=== PATIENT | female | born 1970 | race Caucasian/White ===

== ENCOUNTER 2023-12-27 15:44 | Outpatient (AMB) | payer BC, SELFPAY ==
[2023-12-27 15:59] VITALS: BP 134/86; PULSE 79; TEMP 37.3; O2SAT 98
--- NOTE | 2023-12-27 15:59 | MHC.OFFWIV ---
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 Patient Tobacco Use Status: Never used Tobacco Allergies No Known Allergies Allergy (Verified 12/27/23 16:00) Do you need a note to return to daycare/school/sports/work: No HPI HPI Comments History of Present Illness Details Patient presents to the walk-in today for sick visit Complaining of white past to back of her tongue and pain to the tongue Noticed this approximately 1 week ago [facility] Social History Patient Tobacco Use Status: Never used Tobacco Review of Systems Const All systems reviewed & are unremarkable except as noted in HPI and below Physical Exam Vital Signs: Last Vital Signs Temp 99.2 F 12/27/23 15:59 Pulse 79 12/27/23 15:59 BP 134/86 12/27/23 15:59 Pulse Ox 98 12/27/23 15:59 Oxygen Delivery Method Room Air 12/27/23 15:59 General: awake, alert, oriented. Answers questions appropriately. Fully engaged in examination. Skin: warm, dry, intact HEENT: Normocephalic. Hearing intact. Mouth: Normal exam aside from small white area at the back of her tongue. Cardiac: External chest normal in appearance. Respiratory: No cough, audible wheezing or stridor. Abdomen: without gross distension. MS: No obvious swelling or deformities. Neurological: Oriented to person, place, time and situation. Thought process intact. No gait abnormalities appreciated. Psychiatric: Appropriate mood and affect. Good judgment and insight. Assessment & Plan Assessment & Plan (1) Oral angie: Code(s): B37.0 - Candidal stomatitis Plan clotrimazole 10 mg mucous membrane TID Follow up with PCP, dentist or return here for any new or worsening symptoms Medications: New clotrimazole 10 mg mucous membrane TID 42 tabs 0RF Coding Level of Care Code New Pt Level 3 (99337) Diagnoses Oral angie B37.0
== END 2023-12-27 16:42 | disposition home or self-care (01) ==
PROVIDERS: PCP Family Medicine; Visit Provider Registered Nurse Emergency
DX: B37.0 Candidal stomatitis (principal)
CPT/HCPCS: 99203

== ENCOUNTER 2024-08-24 14:08 | Outpatient (AMB) | payer BC, SELFPAY ==
--- NOTE | 2024-08-24 14:11 | MHC.OFFVIS ---
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 Back pain has been longstanding issue for this patient for over 15 years. She completed numerous courses of formal physical therapy, chiropractic manipulation and adjustment and TENS unit. She [place] [facility] [facility] and received injections with mixed results. She completed physical therapy last year with no improvement in her pain or functioning. Back pain is axial and also radiates to bilateral buttocks and left lateral and posterior lower leg but not below the knee level. She also has been experiencing occasional falls and losing balance with associated numbness and tingling to the left foot. Patient also reports daily chronic migraines that have been worsening. She denies any significant neck pain since bilateral breast reduction in [id number]. 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 Pain affects her daily activities and functioning, and, mood sleep, social interactions and quality of life. Denies any fever or chills or groin pain, footdrop, bladder or bowel dysfunction or saddle anesthesia. Location: Lower back pain radiates down left leg Duration: Chronic pain for over 15 years Characteristics of symptom or complaint: Ramon, shooting, stabbing, tugging, tingling, sore, tiring, radiating Aggravating or associated factors: Movements, changing positions, bending, walking, stress Relieving factors: NSAIDs, Tylenol, topical OTC, heat/cold therapy Treatment: PT, injections, chiropractic therapy, TENS unit [facility] Medical History (Updated 08/24/24 @ 16:19 by JOSEFINA Lopez) Allergic rhinitis Anxiety ADD (attention deficit disorder) Bilateral cataracts Allergic contact dermatitis due to plant Crohn's disease GERD (gastroesophageal reflux disease) Heartburn Sacroiliac joint dysfunction of left side Vitamin D deficiency Asthma Loss of balance Oral angie Migraine headache Lumbar degenerative disc disease Chronic fatigue Surgical History (Updated 08/24/24 @ 16:19 by JOSEFINA Lopez) H/O arthroscopy of shoulder History of tonsillectomy History of cataract surgery H/O colonoscopy History of partial hysterectomy Social History (Updated 08/24/24 @ 14:21 by Angelica Ingram) Alcohol intake: current Alcohol type: wine Patient Tobacco Use Status: Never used Tobacco Review of Systems Const All systems reviewed & are unremarkable except as noted in HPI and below Physical Exam Vital Signs: Last Vital Signs Pulse 75 08/24/24 14:12 BP 169/128 H 08/24/24 14:12 Pulse Ox 99 08/24/24 14:12 Oxygen Delivery Method Room Air 08/24/24 14:12 BMI result Body Mass Index 25.7 General: Appears afebrile. Alert and oriented. Mood and affect appropriate. Follows and participates in conversation appropriately. Respiratory effort is unlabored. No cough. Able to transition from sit to stand unassisted. Ambulates with bilaterally normal heel strike and toe off. HEENT Head: Yes normal to inspection, Yes No palpable skull fracture present, Yes normocephalic, Yes atraumatic, No occipital foramen tenderness and No Temporal artery tenderness present Neck Neck: Yes full ROM, Yes no lymphadenopathy, Yes supple, No anterior neck swelling, Yes no JVD, No prominent supraclavicular fat pad and No prominent dorsocervical fat pad General: Yes no CVA tenderness Back/Spine/Pelvis Other: Patient is able to walk and stand on heels and tip toes with no difficulties demonstrating good motor tone. No limping. Can flex forward to 80-85 degrees and extend to 10-15 degrees before experiencing lumbar pain, worse pain with returning to neutral position after flexing forward or bending. Demonstrates 5/5 strength of quadriceps bilaterally as well as flexion/dorsiflexion of bilateral feet against resistance. 2+ pedal pulses bilaterally. Straight leg rise with dorsiflexion negative bilaterally. +2 patellar and achilles reflexes bilaterally. Facet loading test positive bilaterally. Viri sign is positive bilaterally, Gianluca?s, Gaenslen, Pelvic compression and Stinchfield tests are positive on the left. No groin pain with I/E hip rotations. Valsalva maneuver negative. Back: no CVA tenderness Cervical Spine: cervical ROM normal, cervical muscular tenderness, No Cervical spine tenderness and No step off deformity Thoracic/Lumbar Spine: thoracic and lumbar spine normal to inspection, No Thoracic/lumbar spine scar(s), Lasegue's sign negative, straight leg raise negative bilaterally, pain with thoraco-lumbar ROM, paraspinal muscle tenderness on the left greater than right, No thoracic spinal tenderness and lumbar spinal tenderness (L4-S1) Pelvis: buttock tenderness bilaterally Sacroiliac joints: bilaterally tender to palpation Results Reviewed Results Reviewed: Assessment & Plan Assessment & Plan (1) Lumbar degenerative disc disease: Code(s): M51.369 - Other intervertebral disc degeneration, lumbar region without mention of lumbar back pain or lower extremity pain Category: Medical (2) Lumbosacral spondylosis: Code(s): M47.817 - Spondylosis without myelopathy or radiculopathy, lumbosacral region Category: Medical (3) Migraine headache: Code(s): G43.909 - Migraine, unspecified, not intractable, without status migrainosus Category: Medical (4) Low back pain: Code(s): M54.50 - Low back pain, unspecified Category: Medical (5) Sacroiliac joint dysfunction of left side: Code(s): M53.3 - Sacrococcygeal disorders, not elsewhere classified Category: Medical (6) Loss of balance: Code(s): R26.89 - Other abnormalities of gait and mobility Category: Medical Plan Discussed interventional treatments for axial low back pain and SI joint pain on the left side including diagnostic versus therapeutic injections, neuromodulation with Sprint PNS trial, RFA procedures. Informational brochures were provided to patient today. Tentatively plan for left therapeutic SI joint injection with local and fluoroscopy. Expectations, risks and benefits were reviewed. Patient is aware she will be contacted to schedule this procedure. Script provided for diclofenac sodium and gabapentin. Patient will stop meloxicam due to ineffectiveness. Side effects and precautions were discussed with patient. Head and brain MRI to evaluate continued postmenopausal migraines and loss of balance with recurrent falls. All questions were answered and the patient is in agreement of plan. Follow-up after injections and sooner as needed. Orders: Orders MR head/brain wo con Today G43.909 - Migraine, unspecified, not intractable, without status migrainosus, R26.89 - Other abnormalities of gait and mobility Medications: New diclofenac sodium Take it with food and full glass of water. Avoid other NSAIDs. 50 mg PO TID PRN 90 tabs 0RF pain 30 days M47.817 - Spondylosis without myelopathy or radiculopathy, lumbosacral region, M51.369 - Other intervertebral disc degeneration, lumbar region without mention of lumbar back pain or lower extremity pain gabapentin 300 mg PO BEDTIME 30 caps 0RF pain 30 days G43.909 - Migraine, unspecified, not intractable, without status migrainosus, M54.50 - Low back pain, unspecified Coding Level of Care Code New Pt Level 4 (89076) Complex EM visit Add On G2211 Diagnoses Lumbar degenerative disc disease M51.369 Lumbosacral spondylosis M47.817 Migraine headache G43.909 Low back pain M54.50 Sacroiliac joint dysfunction of left side M53.3 Loss of balance R26.89
[2024-08-24 14:12] VITALS: BP 169/128; PULSE 75; O2SAT 99; BMI 25.7
--- OUTSIDE RECORDS SUMMARY | 2024-08-24 18:46 | XMS_ITS | Continuity of Care Document ---
Author Organization [facility] d[facility] Address [address] [place] [address]- Care Team Providers Care Hospice Home Care Coordinator Name Role Phone James BLAS, Carolina Queen Primary Care Physician [phone] Encounter [facility] Date(s): 06/30/24 - 07/30/24 [facility] [address] [address]- Encounter Type: Triage Allergies, Adverse Reactions, Alerts No Known Allergies Immunizations Given and Recorded Vaccine Date Status Refusal Reason influenza virus vaccine, inactivated 06/22/22 Shakir rded influenza virus vaccine, inactivated 05/22/21 Shakir rded influenza virus vaccine, inactivated 05/03/20 Give n influenza virus vaccine, inactivated 1 06/14/19 Gi mario influenza virus vaccine, inactivated 2 07/18/18 Gi mario influenza virus vaccine, inactivated 3 05/14/17 Gi mario influenza virus vaccine, inactivated 06/05/16 Give n influenza virus vaccine, inactivated 05/23/15 Give n influenza virus vaccine, inactivated 07/03/06 Shakir rded SARS-CoV-2 (COVID-19) mRNA BNT-162b2 vac 4 07/24/21 Given SARS-CoV-2 (COVID-19) mRNA BNT-162b2 vac 10/04/20 Recorded SARS-CoV-2 (COVID-19) mRNA BNT-162b2 vac 09/13/20 Recorded zoster vaccine, inactivated 05/14/21 Recorded zoster vaccine, inactivated 02/03/21 Recorded pneumococcal 23-valent vaccine 05/14/17 Given tetanus/diphtheria/pertussis, acel(Tdap) 09/19/12 Recorded tetanus-diphtheria toxoids (Td) 06/15/05 Recorded 1Result Comment: [facility]# [id number] 2Result Comment: [07/18/2018] [facility]# [id number] 3Result Comment: [05/14/2017] [facility]# [id number] 4Result Comment: [facility]: [id number] Medications Albuterol (Eqv-Proventil HFA) 90 mcg/inh inhalation aerosol 2 puffs, Inhalation, Every 6 hours, # 25.5 each, 5 Refills, Maintenance, 07/28/24 5:03:00 PM EST, [id number], 163, cm, 06/22/24 11:29:00 EST, Height Start Date: 07/28/24 Status: Ordered Quantity: 25.5 Unit: each Repeat number: 1 Ashanti = 180 mg, By Mouth, Daily, 0 Refills, Maintenance, 09/08/13 11:41:15 AM EST Start Date: 09/08/13 Status: Ordered Repeat number: 1 buPROPion 300 mg/24 hours (XL) oral tablet, extended release 1 tablet, By Mouth, Every 24 hours, X90 DAYS., # 90 tablet, 0 Refills, Maintenance, 05/27/24 3:04:00 PM EDT, [id number], 163, cm, 01/04/24 8:18:00 EDT, Height Start Date: 05/27/24 Status: Ordered Quantity: 90.0 Unit: tablet Repeat number: 1 estradiol 0.1 mg/24 hours twice weekly transdermal film, extended release See Instructions, 1 patch Topically twice per week dx: menopausal symptoms, # 24 patch, 3 Refills, Maintenance, 07/24/21 11:21:00 AM EST, [facility]/pharmacy #[id number], Partial fill upon patient request if the prescription is for a schedule II opioid drug., 163, cm, 07/24/21 11:09:00 EST, Height Start Date: 07/24/21 Status: Ordered Quantity: 24.0 Unit: patch Repeat number: 4 hyoscyamine 0.125 mg oral tablet 0.125 mg, 1, tablet, By Mouth, 2 times a day, PRN, # 60 tablet, Refills 1, Tot. Refills 1, Maintenance, Other abdominal cramping, 02/24/23 11:42:00 AM EDT, [id number] Partial fill upon patient request if the prescription is for a schedule II opioid drug.,163, cm, 02/24/23 11:30:00 EDT, Height Start Date: 02/24/23 Stop Date: 04/25/23 Status: Ordered Quantity: 60.0 Unit: tablet Repeat number: 2 LORazepam 0.5 mg oral tablet 1 tablet = 0.5 mg, By Mouth, Daily, PRN Anxiety, # 30 tablet, 0 Refills, Maintenance, 08/12/23 9:02:00 PM EST, Tablet, [facility]/pharmacy #[id number], scripts now issued for 28 day supply., 163, cm, 08/12/23 7:40:00 EST, Height Start Date: 08/12/23 Stop Date: 09/11/23 Status: Ordered Quantity: 30.0 Unit: tablet Repeat number: 1 omeprazole 20 mg oral enteric coated capsule 1 capsule, By Mouth, Daily, # 90 capsule, 1 Refills, Maintenance, 07/20/24 3:54:00 PM EST, [facility] STORE [id number], 163, cm, 06/22/24 11:29:00 EST, Height Start Date: 07/20/24 Status: Ordered Quantity: 90.0 Unit: capsule Repeat number: 1 Splint See Instructions, # 1 each, Maintenance, Right wrist splint for support., 05/03/20 2:19:00 PM EDT, Supply, 163, cm, 05/03/20 13:54:00 EDT, Height Start Date: 05/03/20 Status: Ordered Quantity: 1.0 Unit: each Repeat number: 1 Indication: Pain in right wrist Vestibular Rehab Evaluation and Treat Vestibular Rehab Evaluation and Treat, See Instructions, # 1 each, Refills 0, Tot. Refills 0, Maintenance, Vestibular Rehab Evaluation and Treat for Vertigo, 01/04/24 8:31:00 AM EDT, Supply Start Date: 01/04/24 Status: Ordered Quantity: 1.0 Unit: each Repeat number: 1 Indication: Dizziness and giddiness Vitamin D3 1000 intl units oral capsule 1 capsule = 1,000 International_Units, By Mouth, Daily, # 75 capsule, 0 Refills, Maintenance, 08/15/20 1:27:00 PM EST, Caps[facility], Partial fill upon patient request if the prescription is for a schedule II opioid drug. Start Date: 08/15/20 Status: Ordered Quantity: 75.0 Unit: capsule Repeat number: 1 Problem List Condition Confirmation Course Effective Dates Status Health St atus Informant Allergic rhinitis Confirmed Active Anxiety Confirmed Active ADD (attention deficit disorder) Confirmed Active Bilateral cataracts Confirmed Active Allergic contact dermatitis due to plant Confirmed Active Crohn's disease Confirmed Active GERD (gastroesophageal reflux disease) Confirmed Active Heartburn Confirmed Active Menopausal symptoms Confirmed Active Asthma, mild intermittent Confirmed Active Sacroiliac joint dysfunction of left side Confirmed Active Vitamin D deficiency Confirmed Active Social History Social History Type Response Smoking Status Former smoker; Stopp ed at age: 39; entered on: 03/28/15 Sex Sex Representation Female (finding) Patient Care team information Care Team Personnel Name: Carolina Ramirez MD Position: [facility] Physician - Primary Care Member Role: PCP Address: [address] [place] [address] [place] [address]- Telecom: Care Team Related Persons Name: MELBA RAINEY Insurance Providers Guarantor name: EL [facility] Plan Information #: 1 Payer: [employer] RE[employer] PPO Member Number: NA Policy Number: NA Group Number: NA
--- OUTSIDE RECORDS SUMMARY | 2024-08-24 18:46 | XMS_ITS | Continuity of Care Document ---
Author Organization [facility] d[facility] Address [address] [place] [address]- Care Team Providers Care Clinical Research Spec Name Role Phone James BLAS, Carolina Queen Primary Care Physician Encounter [facility] NBR [id number] Date(s): 07/20/24 - 08/19/24 [facility] [address] [address]- Encounter Type: Triage Allergies, Adverse Reactions, Alerts [...] tetanus-diphtheria toxoids (Td) 06/15/05 Recorded 1Result Comment: [facility]# [id number] 2Result Comment: [07/18/2018] [facility]# [id number] 3Result Comment: [05/14/2017] [facility]# [id number] 4Result Comment: [facility]: [id number] Medications Albuterol (Eqv-Proventil HFA) 90 mcg/inh inhalation aerosol 2 puffs, Inhalation, Every 6 hours, # 25.5 each, 5 Refills, Maintenance, 07/28/24 5:03:00 PM EST, [id number], 163, cm, 06/22/24 11:29:00 EST, Height Start [...] 0 Refills, Maintenance, 05/27/24 3:04:00 PM EDT, [facility] 490[facility], 163, cm, 01/04/24 8:18:00 EDT, Height Start Date: 05/27/24 Status: Ordered Quantity: 90.0 Unit: tablet Repeat number: 1 estradiol 0.1 mg/24 hours twice weekly transdermal film, extended release See Instructions, 1 patch Topically twice per week dx: menopausal symptoms, # 24 patch, 3 Refills, Maintenance, 07/24/21 11:21:00 AM EST, [facility]/pharmacy #[id number], Partial fill upon patient request if [...] 11:42:00 AM EDT, [id number] Partial fill upon patient request if the prescription is for a schedule II opioid drug.,163, cm, 02/24/23 11:30:00 EDT, Height Start Date: 02/24/23 Stop Date: 04/25/23 Status: Ordered Quantity: 60.0 Unit: tablet Repeat number: 2 LORazepam 0.5 mg oral tablet 1 tablet = 0.5 mg, By Mouth, Daily, PRN Anxiety, # 30 tablet, 0 Refills, Maintenance, 08/12/23 9:02:00 PM EST, Tablet, [facility]/pharmacy #[id number], scripts now issued for 28 day supply., 163, cm, 08/12/23 7:40:00 EST, Height Start Date: 08/12/23 Stop Date: 09/11/23 Status: Ordered Quantity: 30.0 Unit: tablet Repeat number: 1 omeprazole 20 mg oral enteric coated capsule 1 capsule, By Mouth, Daily, # 90 capsule, 1 Refills, Maintenance, 07/20/24 3:54:00 PM EST, [id number], 163, cm, 06/22/24 11:29:00 EST, Height Start [...] Team Personnel Name: Carolina Ramirez MD Position: [facility] Physician - Primary Care Member Role: PCP Address: [address] [place] [address] [place], [place] [address] Telecom: Care Team Related Persons Name: MELBA RAINEY Insurance Providers Guarantor name: EL [facility] Plan Information #: 1 Payer: [employer] PPO Member Number: NA Policy Number: NA Group Number: NA
== END 2024-08-24 14:59 | disposition home or self-care (01) ==
PROVIDERS: PCP Family Medicine; Referring Provider Family Medicine; Visit Provider Nurse Practitioner Family
DX: M51.369 Other intervertebral disc degeneration, lumbar region without mention of lumbar back pain or lower extremity pain (principal); M47.817 Spondylosis without myelopathy or radiculopathy, lumbosacral region; G43.909 Migraine, unspecified, not intractable, without status migrainosus; M54.50 Low back pain, unspecified; M53.3 Sacrococcygeal disorders, not elsewhere classified; R26.89 Other abnormalities of gait and mobility
CPT/HCPCS: 99204

== ENCOUNTER → 2024-08-24 14:08 | Outpatient (BNVA) | payer BC, SELFPAY | PROVIDERS: PCP Family Medicine; Referring Provider Family Medicine; Visit Provider Nurse Practitioner Family ==

== ENCOUNTER → 2024-09-18 07:15 | Outpatient (BNV) | payer BC, SELFPAY | PROVIDERS: PCP Family Medicine; Visit Provider Radiology Diagnostic Radiology | DX: G43.909 Migraine, unspecified, not intractable, without status migrainosus (principal) | CPT/HCPCS: 70551 ==

== ENCOUNTER 2024-09-18 07:21 | Outpatient (REF) | payer BC, SELFPAY ==
--- NOTE | ~2024-09-18 | MR_ITS ---
MR/MR head/brain wo con IMPRESSION: 1. No evidence of intracranial hemorrhage, acute infarction, mass effect, or edema. 2. Scattered punctate and minimally confluent supratentorial T2 hyperintense white matter foci, statistically most likely related to small vessel ischemic changes. These have also been described in association with migraines. Distribution does not support inflammatory demyelination. 3. Right cerebellar developmental venous anomaly, for which clinical relevance is doubtful. 4. See the body of report for details and additional ancillary findings. Electronically signed by: Danny Iglesias MD 09/18/2024 08:40 AM PEDRO
== END 2024-09-18 07:22 | disposition home or self-care (01) ==
LOC: HO.MRI 07:21
PROVIDERS: PCP Family Medicine; Visit Provider Nurse Practitioner Family
DX: G43.909 Migraine, unspecified, not intractable, without status migrainosus (principal); R26.89 Other abnormalities of gait and mobility
CPT/HCPCS: 70551

== ENCOUNTER 2024-11-14 09:04 | Outpatient (AMB) | payer BC, SELFPAY ==
--- NOTE | 2024-11-14 09:05 | MHC.OFFVIS ---
Vital Signs 11/14/24 09:09 Height 5 ft 3 in BMI Reason not done Patient refused/unable BP 141/68 H Blood Pressure Location Lt brachial Position Sitting Pulse 62 Pulse Source Pulse Oximeter Pulse Oximetry (%) 98 Oxygen Delivery Method Room Air Intake Visit Reasons: Follow-up appointment Intake Note: Pain today, back- 3/10, headache 6/10 Air Tube Releaser Required: No Accompanied by: Self / Same As Patient Allergies No Known Allergies Allergy (Verified 11/14/24 09:10) HPI Comments Details: The patient is a 54-year-old female presenting with chronic migraine headaches and left sacroiliac joint dysfunction. She experiences headaches of 6/10 and 3/10 left sided low back pain. She attributes continued postmenopausal migraines and loss of balance with history of falls. The headaches, partially managed with gabapentin and diclofenac. Recent brain/head MRI noted below. Patient will follow up with Neurology for further evaluation and encouraged to follow up with her dentinst regarding left temporomandibular joint degeneration. She notes clenching her teeth at night or with stress. Additionally, she combats chronic low back pain, with scores around 3/10 at rest and intensified above 6-7/10 as day goes on, exacerbated by activities like alternating footwear, contributing to limited function. Significant pain relief was previously achieved with a left-sided sacroiliac joint therapeutic injections at [facility] per records review. Her pain and stress levels occasionally elevate her blood pressure, though she ceased smoking using hypnosis, highlighting efficient stress management. Her lifestyle and treatment regimens herald proactive approaches toward managing her chronic conditions. She continues to stay active despite significant left SI joint pain and left low back pain. She notes partial relief with medications. - Onset and Timing: - Chronic headaches with significant history, noted as stable since the last review. - Chronic low back pain, persistent and present on the left side, positive provocative testing for left SI joint pain - Quality and Character: - Headaches rated 6/10 in severity. - Low back pain rated 3/10 at rest, increases to 6-7/10 with daily activities, prolonged sitting or exercise. - Primary Location and Radiation: - Headaches are primarily located on the left side and occipital areas, but many times are all over the head. - Low back pain localized to the left sacroiliac joint without radiating nature. - Exacerbating Factors: - Headache exacerbated by clenching of the jaw, stress, weather changes. - Back pain exacerbated by ADLs, has to wear different footwear for pain control. - Relieving Factors: - Gabapentin and diclofenac provide partial relief for headaches. - Left sacroiliac joint injection provided temporary significant relief, gabapentin, NSAIDs, activity modifications, adjusting footwear. - Interference with Activities: - Back pain restricts activities such as walking or prolonged standing. - Headaches impact daily living, requiring careful management. - Affect: - The patient's pain impacts her psychological well-being, leading to stress and anxiety during exacerbations. - Analgesia: - Currently using gabapentin and diclofenac. - Headache rated at 6/10 currently, less responsive to oral medications. - Significant relief noted with left sacroiliac joint injection previously, though short-lived. - Adverse Effects: - No reported adverse effects to current medication regimen. - Activities of Daily Living: - Restricted in terms of physical exercises and movements that may aggravate pain. - Goal is to maintain activities of daily living without exacerbation. - Aberrant Drug Related Behaviors: - No aberrant drug-related behaviors noted. Past Procedures [facility] [place] [facility]: 05/08/22: Left Therapeutic SI Joint injection-90% pain relief >3 months 11/16/18: Left Therapeutic SI Joint injection-100% pain relief for 2.5 years PRIOR: Patient is a pleasant 54-year-old female with prior history of chronic low back pain, migraine headaches, fatigue, dizziness, shortness of breath, asthma, digestive problems, shoulder surgery, bilateral breast reduction, sacroiliac joint dysfunction of the left side, vitamin-D deficiency GERD, Crohn's disease, anxiety, ADD, presents today for initial evaluation for low back pain with left-sided radiculopathy. Back pain has been longstanding issue for this patient for over 15 years. She completed numerous courses of formal physical therapy, chiropractic manipulation and adjustment and TENS unit. She was previously followed at [facility] and [facility] and received injections with mixed results. She completed physical therapy last year with no improvement in her pain or functioning. Back pain is axial and also radiates to bilateral buttocks and left lateral and posterior lower leg but not below the knee level. She also has been experiencing occasional falls and losing balance with associated numbness and tingling to the left foot. Patient also reports daily chronic migraines that have been worsening. She denies any significant neck pain since bilateral breast reduction in [id number]. She reports last fall was a week ago at work when she bent down to pickle maker a file and she developed significant spasms in her lower back and fell on the floor. 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 Pain affects her daily activities and functioning, and, mood sleep, social interactions and quality of life. Denies any fever or chills or groin pain, foot drop, bladder or bowel dysfunction or saddle anesthesia. Location: Lower back pain radiates down left leg Duration: Chronic pain for over 15 years Characteristics of symptom or complaint: Ramon, shooting, stabbing, tugging, tingling, sore, tiring, radiating Aggravating or associated factors: Movements, changing positions, bending, walking, stress Relieving factors: NSAIDs, Tylenol, topical OTC, heat/cold therapy Treatment: PT, injections, chiropractic therapy, TENS unit [facility] Medical History (Updated 11/14/24 @ 10:26 by JOSEFINA Lopez) Allergic rhinitis Anxiety ADD (attention deficit disorder) Bilateral cataracts Allergic contact dermatitis due to plant Crohn's disease GERD (gastroesophageal reflux disease) Heartburn Sacroiliac joint dysfunction of left side Vitamin D deficiency Asthma Loss of balance Oral angie Migraine headache Lumbar degenerative disc disease Chronic fatigue Surgical History (Updated 08/24/24 @ 16:19 by JOSEFINA Lopez) H/O arthroscopy of shoulder History of tonsillectomy History of cataract surgery H/O colonoscopy History of partial hysterectomy Social History (Updated 08/24/24 @ 14:21 by Angelica Ingram) Alcohol intake: current Alcohol type: wine Patient Tobacco Use Status: Never used Tobacco Review of Systems Const Details: - Neurological: Reports headaches. - Musculoskeletal: Reports left-sided low back pain. - Cardiovascular: Denies new angina or palpitations. - Respiratory: Denies shortness of breath. - Gastrointestinal: Denies changes in bowel habits. - Integumentary: Denies new rashes or lesions. - Ears, Nose, Throat: Reports changes in temporomandibular joint and sinus issues on occasion. - General: Denies unexplained weight changes, fatigue, or fever. All systems reviewed & are unremarkable except as noted in HPI and below Physical Exam General: Appears afebrile. Alert and oriented. Mood and affect appropriate. Follows and participates in conversation appropriately. Respiratory effort is unlabored. No cough. Able to transition from sit to stand unassisted. Ambulates with bilaterally normal heel strike and toe off. HEENT Head: Yes normal to inspection, Yes No palpable skull fracture present, Yes normocephalic, No occipital foramen tenderness and No Temporal artery tenderness present Eyes General: appearance normal, both eyes and all related structures Neck Neck: Yes full ROM, Yes no lymphadenopathy, Yes supple, No anterior neck swelling, Yes no JVD, No prominent supraclavicular fat pad and No prominent dorsocervical fat pad General: Yes no CVA tenderness Back/Spine/Pelvis Other: Patient is able to walk and stand on heels and tip toes with no difficulties demonstrating good motor tone. Normal gait, no limping. Can flex forward to 80-85 degrees and extend to 5-10 degrees before experiencing lumbar pain, worse pain with returning to neutral position after flexing forward or bending. Minimal pain with axial rotations or extension. Demonstrates 5/5 strength of quadriceps bilaterally as well as flexion/dorsiflexion of bilateral feet against resistance. 2+ pedal pulses bilaterally. +2 patellar and achilles reflexes bilaterally. Facet loading test positive bilaterally. Viri sign is positive bilaterally, left>right, Gianluca?s, Gaenslen, Pelvic compression and Stinchfield tests are positive on the left. No groin pain with I/E hip rotations. Valsalva maneuver is negative. Back: no CVA tenderness Cervical Spine: cervical ROM normal, cervical muscular tenderness and No Cervical spine tenderness Thoracic/Lumbar Spine: thoracic and lumbar spine normal to inspection, No Thoracic/lumbar spine scar(s), Lasegue's sign negative, straight leg raise negative bilaterally, pain with thoraco-lumbar ROM, No paraspinal muscle tenderness, No thoracic spinal tenderness and lumbar spinal tenderness (L4-S1) Pelvis: buttock tenderness on the left Sacroiliac joints: bilaterally (left>right) tender to palpation Extrem General: Yes capillary refill normal, Yes no clubbing, cyanosis or edema and Yes no calf tenderness Results Reviewed Results Reviewed: MR BRAIN WITHOUT CONTRAST 09/18/24 CLINICAL INFORMATION: Migraine, unspecified, without status. COMPARISON: None available. TECHNIQUE: MRI of the brain was obtained using routine sequences without contrast. Examination performed on a 1.5 Miley Siemens high-field unit. FINDINGS: There is no diffusion restriction. There is no intracranial hemorrhage, acute infarction, mass effect, or edema. Ventricles, sulci, and cisterns are normal in size and configuration for patient age. Basal cisterns are normal/patent. No shift of midline. No abnormal hemosiderin deposition is identified. 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 There are scattered punctate and minimally confluent foci of white matter T2 hyperintensity in the periventricular, subcortical, and hemispheric deep white matter, nonspecific. Midline structures appear normally formed. The corpus callosum is normal in volume. The pituitary gland appears normal. Cerebellar tonsils are appropriately located. Major flow voids are preserved within the skull base. The globes and orbital contents demonstrate no abnormalities. There are bilateral lens replacements present. Paranasal sinuses are clear bilaterally. Nasal septum is midline without spur. Trace fluid left mastoid tip. The mastoids and tympanic cavities are otherwise normally aerated. Extracranial soft tissues demonstrate no abnormalities. No suspicious bone marrow changes are evident. Minimal degenerative changes left TM joint. Atlantoaxial joint, and imaged upper cervical spine are normal. IMPRESSION: 1. No evidence of intracranial hemorrhage, acute infarction, mass effect, or edema. 2. Scattered punctate and minimally confluent supratentorial T2 hyperintense white matter foci, statistically most likely related to small vessel ischemic changes. These have also been described in association with migraines. Distribution does not support inflammatory demyelination. 3. Right cerebellar developmental venous anomaly, for which clinical relevance is doubtful. 4. See the body of report for details and additional ancillary findings. Assessment & Plan Assessment & Plan (1) Migraine headache: Code(s): G43.909 - Migraine, unspecified, not intractable, without status migrainosus Category: Medical (2) Abnormal MRI scan, head: Code(s): R93.0 - Abnormal findings on diagnostic imaging of skull and head, not elsewhere classified Category: Medical (3) Lumbosacral spondylosis: Code(s): M47.817 - Spondylosis without myelopathy or radiculopathy, lumbosacral region Category: Medical (4) Low back pain: Code(s): M54.50 - Low back pain, unspecified Category: Medical (5) Sacroiliac joint dysfunction of left side: Code(s): M53.3 - Sacrococcygeal disorders, not elsewhere classified Category: Medical (6) Sacroiliitis: Code(s): M46.1 - Sacroiliitis, not elsewhere classified Category: Medical Plan Neurology referral for chronic migraine management, worsening with post-menopausal symptoms and abnormal findings on recent brain/head MRI as noted above. Schedule for left diagnostic SI joint injection with local and fluoroscopy for potential RFA procedure if positive response with repeated injections. Expectations, risks and benefits were reviewed. Patient is aware she will be contacted to schedule this procedure. We had thorough discussion about possible surgical interventions like sacroiliac fusion should conservative measures become inadequate, although the patient's preference leans towards conservative management initially. We also discussed PNS trial and implant. Refills provided for diclofenac sodium and gabapentin. Side effects and precautions were discussed with patient. Emphasis is on maintaining quality of life without exacerbating daily living with attention to psychological impacts and gradually navigating non-invasive/aggressive interventions suiting coverage terms. All questions were answered and the patient is in agreement of plan. Follow-up after injections and sooner as needed. Patient was informed and verbally consented to the use of an ambient scribe for clinic note documentation during this visit. Orders: Referrals Neurology Referral G43.909 - Migraine, unspecified, not intractable, without status migrainosus, R93.0 - Abnormal findings on diagnostic imaging of skull and head, not elsewhere classified Medications: Changed From gabapentin 300 mg PO BEDTIME 30 days 30 caps 0RF pain G43.909 - Migraine, unspecified, not intractable, without status migrainosus, M54.50 - Low back pain, unspecified To gabapentin 300 mg PO BEDTIME 90 days 90 caps 3RF pain G43.909 - Migraine, unspecified, not intractable, without status migrainosus, M54.50 - Low back pain, unspecified Refilled diclofenac sodium Take it with food and full glass of water. Avoid other NSAIDs. 50 mg PO TID 30 days PRN 90 tabs 0RF pain M47.817 - Spondylosis without myelopathy or radiculopathy, lumbosacral region, M51.369 - Other intervertebral disc degeneration, lumbar region without mention of lumbar back pain or lower extremity pain Patient Instructions: - Arrange for a diagnostic sacroiliac joint injection per recommendations. - Continue current medications, gabapentin at bedtime and diclofenac as needed. - Monitor any adverse reactions or side effects from medications. - Schedule an appointment with a Neurologist for further headache management and recent MRI findings. - Avoid any triggers known to exacerbate lower back pain, continue with activity and footwear modifications. - Contact the office if worsening symptoms occur or for any clarification needed on the discussed plan. - Manage stress using breathing exercises and continue with non-invasive relaxation techniques. - If experiencing new symptoms or increased headache severity, seek medical attention promptly. Coding Level of Care Code Est Pt Level 4 (57227) Complex EM visit Add On G2211 Diagnoses Migraine headache G43.909 Abnormal MRI scan, head R93.0 Lumbosacral spondylosis M47.817 Low back pain M54.50 Sacroiliac joint dysfunction of left side M53.3 Sacroiliitis M46.1
[2024-11-14 09:09] VITALS: BP 141/68; PULSE 62; O2SAT 98
--- OUTSIDE RECORDS SUMMARY | 2024-11-14 09:55 | XMS_ITS ---
Author Name [facility] Organization Unknown Care Team Organization Name Specialty Phone Email Start Date End Da tanika [facility] 06/23/2024 [facility] 01/09/2023 [facility]
== END 2024-11-14 09:40 | disposition home or self-care (01) ==
LOC: HO.PMC 09:04
PROVIDERS: PCP Family Medicine; Visit Provider Nurse Practitioner Family
DX: G43.909 Migraine, unspecified, not intractable, without status migrainosus (principal); R93.0 Abnormal findings on diagnostic imaging of skull and head, not elsewhere classified; M47.817 Spondylosis without myelopathy or radiculopathy, lumbosacral region; M54.50 Low back pain, unspecified; M53.3 Sacrococcygeal disorders, not elsewhere classified; M46.1 Sacroiliitis, not elsewhere classified
CPT/HCPCS: 99214